=== PATIENT | female | born 1990 | race Caucasian/White ===

== ENCOUNTER 2017-03-20 15:06 | Emergency (ER) | payer SELFPAY ==
[2017-03-20 16:18] VITALS: BP 94/59
--- NOTE | 2017-03-20 17:24 | UC ---
Throat Pain/Nasal [place] HPI - HPI Summary HPI Summary: 02/25/17 SORE THROAT INFECTION, HAD BEEN PUT ON ANTIBIOTICS (AMOXICILLIN) FELT BETTER, BUT LAST WEEK FINISHED COURSE OF ABX. SYMPTOMS RETURNING. - History of Current Complaint Chief Complaint: UCRespiratory Stated Complaint: SORE THROAT, AND EAR ACHE Time Seen by Provider: 03/20/17 16:15 Hx Obtained From: Patient Hx Last Menstrual Period: IUD IN PLACE 02/14/2017 Onset/Duration: Gradual Onset, Lasting Weeks Severity: Moderate Pain Intensity: 3 Pain Scale Used: 0-10 Numeric Cough: Nonproductive Associated Signs & Symptoms: Positive: Hoarseness, Sinus Discomfort, Nasal Discharge - Epiglottits Risk Factors Epiglottis Risk Factors: Negative - Allergies/Home Medications Allergies/Adverse Reactions: Allergies Allergy/AdvReac Type Severity Reaction Status Date / Time Vancomycin Allergy Severe See Comment Verified 03/20/17 16:12 PMH/Surg Hx/FS Hx/Imm Hx Previously Healthy: Yes - Surgical History Surgical History: Yes Surgery Procedure, Year, and Place: 2012 LAPAROSCOPIC CHOLECYSTECTOMY, [place]. 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 Smoking Status (MU): Former Smoker Type: Cigarettes Amount Used/How Often: 1/2 PPD Have You Smoked in the Last Year: Yes When Did the Patient Quit Smoking/Using Tobacco: May Cessation Counseling: Patient Advised to Stop Review of Systems Constitutional: Fever, Fatigue Skin: Negative ENT: Sore Throat, Ear Ache, Nasal Discharge, Sinus Congestion, Sinus Pain/ Tenderness Respiratory: Negative Cardiovascular: Negative Gastrointestinal: Negative Genitourinary: Negative Motor: Negative Neurovascular: Negative Musculoskeletal: Negative Neurological: Negative Psychological: Negative Is Patient Immunocompromised?: No All Other Systems Reviewed And Are Negative: Yes Physical Exam Triage Information Reviewed: Yes Appearance: Well-Appearing, No Pain Distress, Well-Nourished Vital Signs: Initial Vital Signs Temp 98.5 F 03/20/17 16:13 Pulse 70 03/20/17 16:13 Resp 16 03/20/17 16:13 BP 94/59 03/20/17 16:13 Pulse Ox 100 03/20/17 16:13 Vital Signs Reviewed: Yes Eye Exam: Normal ENT: Positive: Pharyngeal erythema, Nasal congestion, TM bulging, TM dull. Negative: Tonsillar swelling - TONSILLECTOMY Dental Exam: Normal Neck exam: Normal Respiratory Exam: Normal Respiratory: Positive: Chest non-tender, Lungs clear, Normal breath sounds, No respiratory distress Cardiovascular Exam: Normal Cardiovascular: Positive: RRR, No Murmur, Pulses Normal Abdominal Exam: Normal Abdomen Description: Positive: Nontender, No Organomegaly, Soft Musculoskeletal Exam: Normal Neurological Exam: Normal Psychological Exam: Normal Skin Exam: Normal Throat Pain/Nasal Course/Dx - Differential Dx/Diagnosis Differential Diagnosis/HQI/PQRI: Pharyngitis, Sinusitis, Tonsillitis, URI Provider Diagnoses: SINUSITIS; PHARYNGITIS Discharge - Discharge Plan Condition: Stable Disposition: HOME Prescriptions: DOXYcycline CAP(*) [DOXYcycline 100MG CAP(*)] 100 mg PO BID #20 cap Patient Education Materials: Pharyngitis (ED), Sinusitis (ED) Referrals: [facility] [Outside] Marisol Lund MD [Primary Care Provider] -
--- NOTE | 2017-03-23 17:38 | ED ---
Progress - Progress Note Progress Note: THROAT CX NORMAL. CAN STOP ABX. Course/Dx - Diagnoses Provider Diagnoses: Pharyngitis
== END 2017-03-20 16:39 | disposition home or self-care (01) ==
LOC: UCEAST 15:06
DX: J32.9 Chronic sinusitis, unspecified (principal); J02.9 Acute pharyngitis, unspecified; Z87.891 Personal history of nicotine dependence
CPT/HCPCS: 87070; 99212; G0463